=== PATIENT | male | born 1990 | race Asian ===

== ENCOUNTER 2016-10-09 21:38 | Emergency (ER) | payer OTHER ==
[2016-10-09 21:42] VITALS: O2SAT 95
[2016-10-09] MEDS ORDERED: ONDANSETRON 4 MG/2 ML VIAL IVP ONE (22:00)
[2016-10-09] MEDS ORDERED: NS 1,000 ML IV ONE ×2 (22:00→22:51)
[2016-10-09] MEDS ORDERED: LORazepam 2 MG/ML INJ IVP ONE (22:02)
--- NOTE | 2016-10-09 22:05 | EDPHY ---
H & P Stated Complaint: anxiety attack for 1 hour, smoked marijuana, vomiting Time Seen by Provider: 10/09/16 21:54 HPI/ROS: Chief Complaint: Shortness of breath, anxiety HPI: 26-year-old male started having episode of pain feeling very anxious, nauseated, back pain and vomiting. This began about an hour ago after smoking marijuana. He has smoked marijuana in the past. He did just travel for 32 hours from [place]. He is here on business. Does not have any prior history of similar episodes. No leg pain or swelling. Does have a little bit pain with deep inspiration. No cough fever no fevers or chills. ROS: 10 point Review of Systems is negative except as noted in the HPI. PMH: None Medications: None Allergies: Denies Social History: Occasional smoking, occasional alcohol, occasional marijuana Family History: non-contributory Physical Exam: Gen: Awake, Alert, anxious appearing, hyperventilating with carpopedal spasm HEENT: Nose: no rhinorrhea Eyes: PERRLA, EOMI Mouth: Moist mucosa Neck: Supple, no JVD Chest: nontender, lungs clear to auscultation Heart: S1, S2 normal, no murmur Abd: Soft, non-tender, no guarding Back: no CVA tenderness, no midline tenderness Ext: no edema, non-tender Skin: no rash Neuro: CN II-XII intact, Sensation grossly intact, Strength 5/5 in bilateral upper and lower extremities - Personal History Current Tetanus/Diphtheria Vaccine: Unsure Current Tetanus Diphtheria and Acellular Pertussis (TDAP): Unsure - Medical/Surgical History Hx Asthma: No Hx Chronic Respiratory Disease: No Hx Diabetes: No Hx Cardiac Disease: No Hx Renal Disease: No Hx Cirrhosis: No Hx Alcoholism: No Hx HIV/AIDS: No Hx Splenectomy or Spleen Trauma: No Other PMH: denies - Social History Smoking Status: Current every day smoker Constitutional: Initial Vital Signs Temperature (C) 36.4 C 10/09/16 21:39 Heart Rate 115 H 10/09/16 21:39 Respiratory Rate 20 10/09/16 21:39 Blood Pressure 129/98 H 10/09/16 21:39 O2 Sat (%) 95 10/09/16 21:39 O2 Delivery Mode Room Air Allergies/Adverse Reactions: No Known Allergies Allergy (Unverified 10/09/16 21:42) Home Medications: Medication Instructions Recorded NK [No Known Home Meds] 10/09/16 Medical Decision Making ED Course/Re-evaluation: Patient presenting with an adverse chin after using marijuana. He did have a long trans [place] flight. D-dimer is normal. ECG shows some inferior Q-waves with her prior with a normal variant. No chest pain. Remainder is blood work is unremarkable. He is improved after IV fluids and Ativan. He has been counseled to discontinue marijuana use. Follow up with primary care physician in 2-3 days. - Data Points Laboratory Results: Laboratory Results 10/09/16 22:12 10/09/16 22:12 10/09/16 10/09/16 10/09/16 22:12 22:12 22:12 WBC 9.90 10^3/uL H 10^3/uL (3.80-9.50) RBC 4.88 10^6/uL 10^6/uL (4.40-6.38) Hgb 14.8 g/dL g/dL (13.7-17.5) Hct 41.5 % % (40.0-51.0) MCV 85.0 fL fL (81.5-99.8) MCH 30.3 pg pg (27.9-34.1) MCHC 35.7 g/dL g/dL (32.4-36.7) RDW 11.7 % % (11.5-15.2) Plt Count 264 10^3/uL 10^3/uL (150-400) MPV 10.6 fL fL (8.7-11.7) Neut % (Auto) 56.9 % % (39.3-74.2) Lymph % (Auto) 33.3 % % (15.0-45.0) [place] % (Auto) 6.7 % % (4.5-13.0) Eos % (Auto) 2.1 % % (0.6-7.6) Baso % (Auto) 0.7 % % (0.3-1.7) Nucleat RBC Rel Count 0.0 % % (0.0-0.2) Absolute Neuts (auto) 5.63 10^3/uL 10^3/uL (1.70-6.50) Absolute Lymphs (auto) 3.30 10^3/uL H 10^3/uL (1.00-3.00) Absolute Monos (auto) 0.66 10^3/uL 10^3/uL (0.30-0.80) Absolute Eos (auto) 0.21 10^3/uL 10^3/uL (0.03-0.40) Absolute Basos (auto) 0.07 10^3/uL 10^3/uL (0.02-0.10) Absolute Nucleated RBC 0.00 10^3/uL 10^3/uL (0-0.01) Immature Gran % 0.3 % % (0.0-1.1) Immature Gran # 0.03 10^3/uL 10^3/uL (0.00-0.10) D-Dimer < 0.27 ug/mLFEU ug/mLFEU (0.00-0.50) Sodium 137 mEq/L mEq/L (134-144) Potassium 3.9 mEq/L mEq/L (3.5-5.2) Chloride 99 mEq/L mEq/L (97-110) Carbon Dioxide 22 mEq/l mEq/l (22-31) Anion Gap 16 mEq/L mEq/L (8-16) BUN 15 mg/dL mg/dL (7-23) Creatinine 0.9 mg/dL mg/dL (0.7-1.3) Estimated GFR > 60 Glucose 145 mg/dL H mg/dL (70-100) Calcium 10.5 mg/dL H mg/dL (8.5-10.4) Medications Given: Discontinued Medications Sodium Chloride (Ns) 1,000 mls @ 0 mls/hr IV ONCE ONE PRN Reason: Wide Open Stop: 10/09/16 22:01 Last Admin: 10/09/16 22:15 Dose: 1,000 mls Sodium Chloride (Ns) 1,000 mls @ 0 mls/hr IV ONCE ONE PRN Reason: Wide Open Stop: 10/09/16 22:52 Last Admin: 10/09/16 23:02 Dose: 1,000 mls Lorazepam (Ativan Injection) 1 mg IVP EDNOW ONE Stop: 10/09/16 22:03 Last Admin: 10/09/16 22:16 Dose: 1 mg Ondansetron HCl (Zofran) 4 mg IVP EDNOW ONE Stop: 10/09/16 22:01 Last Admin: 10/09/16 22:16 Dose: 4 mg Departure - Departure Disposition: Home, Routine, Self-Care Clinical Impression: Marijuana use, Anxiety Condition: Good Instructions: Anxiety (ED), Cannabis Abuse (ED) Additional Instructions: Please try to avoid cannabis use in the future. Follow up with primary care in 2-3 days if symptoms are not improving. If he continued to feel anxious she may follow up with [facility]. Referrals: NONE *PRIMARY CARE P,. [Primary Care Provider] - As per Instructions [facility]IN[facility]ILL[facility] [Medical Doctor] - As per Instructions [facility] [Clinic] - As per Instructions
[2016-10-09 22:26] LABS: % IMMATURE GRANULYOCYTES 0.3 % (0.0-1.1); ABSOLUTE IMMATURE GRANULOCYTES 0.03 10^3/uL (0.00-0.10); ADD DIFF? NO; ADD MORPH? NO; ADD SCAN? NO; ATYPICAL LYMPHOCYTE FLAG 20 (0-99); FRAGMENT RBC FLAG 0 (0-99); HEMATOCRIT 41.5 % (40.0-51.0); HEMOGLOBIN 14.8 g/dL (13.7-17.5); LEFT SHIFT FLG 0 (0-99); LIPEMIA HEMOLYSIS FLAG 90 (0-99); MEAN CELL HEMOGLOBIN 30.3 pg (27.9-34.1); MEAN CELL HEMOGLOBIN CONCENTR. 35.7 g/dL (32.4-36.7); MEAN PLATELET VOLUME 10.6 fL (8.7-11.7); PLATELET CLUMPS FLAG 0 (0-99); PLATELET COUNT 264 10^3/uL (150-400); RED BLOOD CELL COUNT 4.88 10^6/uL (4.40-6.38); RED CELL DISTRIBUTION WIDTH 11.7 % (11.5-15.2)
--- NOTE | 2016-10-09 22:37 | CPEKG ---
Heart Rate: 96 RR Interval: 625 P-R Interval: 128 QRSD Interval: 86 QT Interval: 348 QTC Interval: 440 P [place]: 47 QRS [place]: 40 T Wave [place]: 15 EKG Severity - BORDERLINE ECG - EKG Impression: SINUS RHYTHM EKG Impression: INFERIOR Q WAVES, PROBABLY NORMAL VARIATION Electronically Signed By: Gustavo Quach 10-Oct-2016 05:23:33
[2016-10-09 22:51] LABS: ANION GAP 16 mEq/L (8-16); CALCIUM 10.5 mg/dL (8.5-10.4); CARBON DIOXIDE 22 mEq/l (22-31); CHLORIDE 99 mEq/L (97-110); CREATININE 0.9 mg/dL (0.7-1.3); GLOMERULAR FILTRATION RATE > 60; GLUCOSE 145 mg/dL (70-100); POTASSIUM 3.9 mEq/L (3.5-5.2); SODIUM 137 mEq/L (134-144)
[2016-10-09] MEDS ORDERED: LORAZEPAM 1 MG PREPACK#4 BTL TAKEHOME ONE (23:20)
[2016-10-10 00:04] VITALS: BP 111/68; PULSE 90; RESP 16; TEMP 98.2
== END 2016-10-10 00:04 | disposition home or self-care (01) ==
DX: F12.180 Cannabis abuse with cannabis-induced anxiety disorder (principal); F17.200 Nicotine dependence, unspecified, uncomplicated
CPT/HCPCS: 96374; J2060; J2405